=== PATIENT | male | born 1950 | race Caucasian/White ===

== ENCOUNTER 2021-09-30 20:35 | Emergency (ER) | payer OTHER | END 2021-10-01 02:04 | disposition home or self-care (01) | LOC: ER1 20:35 | DX: M54.6 Pain in thoracic spine (principal); M25.561 Pain in right knee; I11.9 Hypertensive heart disease without heart failure; F17.200 Nicotine dependence, unspecified, uncomplicated; V47.5XXA Car driver injured in collision with fixed or stationary object in traffic accident, initial encounter; Y92.410 Unspecified street and highway as the place of occurrence of the external cause | CPT/HCPCS: 70450; 72128; 72170; 73564; 96372; 99284; J1885 ==

== ENCOUNTER 2021-10-22 10:45 | Emergency (ER) | payer MEDICARE ==
[2021-10-22 11:07] LABS: HEMOGLOBIN 13.7 gm/dl (14.0-17.5); RED BLOOD COUNT 4.54 M/UL (4.20-5.50); WHITE BLOOD COUNT 22.6 K/UL (4.5-11.0)
[2021-10-22 11:33] LABS: BUN/CREATININE RATIO 41 (0-10)
== END 2021-10-22 13:56 ==
LOC: ER1 10:45
PROVIDERS: Emergency Medicine; Physician Assistant Medical
DX: S06.5X9A Traumatic subdural hemorrhage with loss of consciousness of unspecified duration, initial encounter (principal); G93.41 Metabolic encephalopathy; E87.1 Hypo-osmolality and hyponatremia; E16.2 Hypoglycemia, unspecified; Z20.822 Contact with and (suspected) exposure to COVID-19; X58.XXXA Exposure to other specified factors, initial encounter
CPT/HCPCS: 31500; 36600; 70450; 71045; 80053; 80307; 81001; 82140; 82550; 82553; 82803; 82962; 83605; 83735; 83874; 84100; 84484; 85025; 85610; 87040; 93005; 94002; 96374; 96375; 99285; G0480; J0692; J2250; J3370; J7030; J7070; U0002

== ENCOUNTER 2022-05-05 12:44 | Emergency (ER) | payer MEDICARE ==
[2022-05-05 15:06] LABS: HEMOGLOBIN 13.6 gm/dl (14.0-17.5); RED BLOOD COUNT 4.5 M/UL (4.20-5.50); WHITE BLOOD COUNT 8.9 K/UL (4.5-11.0)
[2022-05-05] MEDS ORDERED: CEPHALEXIN500 M1 PO (15:55)
== END 2022-05-05 16:05 | disposition left against medical advice (07) ==
LOC: ER1 12:44
DX: M25.551 Pain in right hip (principal); M25.561 Pain in right knee; M79.89 Other specified soft tissue disorders; F17.210 Nicotine dependence, cigarettes, uncomplicated
CPT/HCPCS: 72170; 73552; 80053; 83605; 85025; 87040; 99283